=== PATIENT | female | born 1960 | race Caucasian/White ===

== ENCOUNTER → 2018-04-03 | Outpatient (CLI) | payer BC ==
[2018-04-03 11:21] LABS: Appearance,Urine Clear (Clear); Bilirubin,Urine Negative (Negative); Blood,Urine Negative (Negative); Color,Urine Light Yellow; Glucose,Urine (UA) Negative (Negative); Ketones,Urine Negative (Negative); Leukocyte Esterase,Urine Negative (Negative); Nitrite,Urine Negative (Negative); PH, Urine 6.5 (5.0-8.0); Protein,Urine Negative (Negative); Specific Gravity,Urine 1.011 (1.001-1.035); Urobilinogen,Urine <2.0 mg/dL (<2.0)
[2018-04-03 11:23] LABS: Basophils % (A) 1 %; Eosinophils # (A) 0.4 k/uL (0-0.7); Eosinophils % (A) 9 %; HCT 40.5 % (34.0-46.0); HGB 12.6 gm/dL (11.4-16.0); Lymphocytes # (A) 1.9 k/uL (1.0-4.8); Lymphocytes % (A) 47 %; MCH 27.8 pg (25.0-35.0); MCV 89.8 fL (80.0-100.0); Monocytes # (A) 0.2 k/uL (0-1.0); Monocytes % (A) 4 %; Neutrophils # (A) 1.6 k/uL (1.3-7.7); Neutrophils % (A) 39 %; Platelet Count 229 k/uL (150-450); RBC 4.52 m/uL (3.80-5.40); RDW 13.2 % (11.5-15.5); WBC 4.1 k/uL (3.8-10.6)
[2018-04-03 11:40] LABS: Albumin 4.2 g/dL (3.5-5.0); Calcium 9.9 mg/dL (8.4-10.2); Potassium 4.5 mmol/L (3.5-5.1); Total Bilirubin 0.6 mg/dL (0.2-1.3); Total Protein 7.3 g/dL (6.3-8.2)
[2018-04-03 17:50] LABS: Hemoglobin A1C 5.9 % (4.0-6.0)
== END | disposition home or self-care (01) ==
LOC: LABWHC1 10:56
PROVIDERS: ATTEND Family Medicine
DX: E78.5 Hyperlipidemia, unspecified (principal); I10 Essential (primary) hypertension; Z11.59 Encounter for screening for other viral diseases; Z79.899 Other long term (current) drug therapy
CPT/HCPCS: 36415; 80053; 80061; 81003; 82550; 83036; 84443; 85025; 86803

== ENCOUNTER → 2018-05-10 | Outpatient (CLI) | payer BC ==
--- NOTE | 2018-05-11 09:25 | CTL ---
EXAMINATION TYPE: CT Low Dose Lung DATE OF EXAM ORDERED: 05/10/2018 HISTORY: Personal history of tobacco use. Lung cancer screening CT DLP: [address]DI: 1.87 mGy Automated exposure control for dose reduction was used. SCREENING VISIT: Initial study COMPARISON: None TECHNIQUE: Low dose computed tomography scan was performed through the chest at 1 mm thick sections a nd reconstructed images in the coronal plane at [address] DIAGNOSTIC QUALITY: Satisfactory FINDINGS: LUNG NODULES: Present, detailed below: Right lung a nodule with a size of 6 x 8 mm. with Nodule Type: Solid on axial image 168. Right lung base subpleural nodule measuring 5 x 4 mm axial image 158. Left lung solid nodule measuring 6 x 3 mm axial image 142. There is an occasional nodule measuring 3 mm or smaller in size bilaterally. LUNGS: COPD: Severity: Mild Fibrosis: Severity: None Lymph nodes: None Other findings: None BILATERAL PLEURAL SPACE: Effusion: None Calcification: None Thickening: None Pneumothorax: None HEART: Heart Size: Normal Coronary calcification: None Pericardial effusion: None OTHER FINDINGS: Upper abdomen: None Bony thorax: Mild multilevel spurring Supraclavicular region: None Other: None IMPRESSION: Scattered nodules measuring up to 8 x [address] CHEST RECOMMENDATION: 6 month follow-up low-dose lung screening CT. CT LUNG RAD: Lung-Rad 3 Probably Benign
== END | disposition home or self-care (01) ==
LOC: RADCTMAIN 18:22
PROVIDERS: ATTEND Family Medicine
DX: R91.8 Other nonspecific abnormal finding of lung field (principal); Z87.891 Personal history of nicotine dependence

== ENCOUNTER → 2018-07-16 | Outpatient (CLI) | payer BC ==
--- NOTE | 2018-07-20 10:26 | MM ---
Reason for exam: screening (asymptomatic). Last mammogram was performed 2 years and 11 months ago. History: Patient is postmenopausal. Took hormonal contraceptives for 6 years. Physical Findings: A clinical breast exam by your physician is recommended on an annual basis and results should be correlated with mammographic findings. MG 3D Screening Mammo W/Cad Bilateral CC and MLO view(s) were taken. Prior study comparison: August 09, 2015, right breast MG 3d work up w/cad RT. August 02, 2015, bilateral MG screening mammo w CAD. There are scattered fibroglandular densities. Multiple bilateral circumscribed to mostly circumscribed masses compatible with a benign pattern. Some of these show slight fluctuation in size in the interval. No significant changes when compared with prior studies. ASSESSMENT: Benign, BI-RAD 2 RECOMMENDATION: Routine screening mammogram of both breasts in 1 year.
== END | disposition home or self-care (01) ==
LOC: RADMAMWWP 13:47
PROVIDERS: ATTEND Family Medicine
DX: Z12.31 Encounter for screening mammogram for malignant neoplasm of breast (principal)
CPT/HCPCS: 77063; 77067

== ENCOUNTER → 2018-07-27 | Outpatient (CLI) | payer BC | END | disposition home or self-care (01) | LOC: CPPFTMAIN 11:58 | PROVIDERS: ATTEND Family Medicine | DX: J44.9 Chronic obstructive pulmonary disease, unspecified (principal) | CPT/HCPCS: 94060; 94726; 94729 ==

== ENCOUNTER → 2019-05-12 | Outpatient (CLI) | payer BC ==
--- NOTE | 2019-05-12 19:21 | CT ---
EXAMINATION TYPE: CT chest wo con DATE OF EXAM: 05/12/2019 COMPARISON: Low-dose lung screening CT May 10, 2018 HISTORY: Lung nodules, prior abnormal CT. CT DLP: 171.9 mGycm. Automated Exposure Control for Dose Reduction was Utilized. TECHNIQUE: CT scan of the thorax is performed without IV contrast. FINDINGS: LUNGS: There is persistent anterior right mid lung nodule measuring 8 x 6 mm current study image 34 n ot significantly changed in size from prior measurements. The 4 mm subpleural nodule or nodular densi ty axial image 32 anterolateral to this is stable and benign. Of more concern is larger 9 x 6 mm subp leural nodule posteriorly right lower lobe axial image 37 not significantly changed from prior study image 188. Left lung shows scattered small nodules, referenced nodule axial image 27 measures 6 x 3 m m not significantly changed from prior. Smaller nodule is seen just anterior-inferior to the second m easures 29 unchanged from prior. There is mild to moderate biapical pleural/pericardial scarring rede monstrated. No definitive new greater than 5 mm pulmonary nodules or masses. There is central left ba silar linear scarring just above diaphragm redemonstrated. No pleural effusion or pneumothorax. MEDIASTINUM: Lack of IV contrast is noted to limit evaluation for mediastinal and especially hilar ad enopathy. There are no definitive greater than 1 cm hilar or mediastinal lymph nodes. No cardiomega ly or pericardial effusion is seen. OTHER: Mild to moderate multilevel spurring in the thoracic spine.. IMPRESSION: Stable scattered small nodules. No enlarging or new greater than 4 mm nodules identified. Follow-up CT in one year time is advised to document two-year stability to confirm benign or postinf lammatory etiology.
== END | disposition home or self-care (01) ==
LOC: RADCTMAIN 17:00
PROVIDERS: ATTEND Family Medicine
DX: R91.8 Other nonspecific abnormal finding of lung field (principal)
CPT/HCPCS: 71250

== ENCOUNTER → 2019-10-18 | Outpatient (CLI) | payer BC ==
[2019-10-18 18:47] LABS: African American GFR (CKD) 92.9 (60.0-200.0); Anion Gap 6.3 mmol/L (4.00-12.00); BUN/Creat Ratio 26.25 Ratio (12.00-20.00); Calcium 9.7 mg/dL (8.7-10.3); Carbon Dioxide 27.7 mmol/L (21.6-31.8); Chol/HDL Ratio 3.7; Non-African American GFR(CKD) 80.1 (60.0-200.0); Potassium 4.1 mmol/L (3.5-5.5)
== END ==
LOC: LABWHC1 12:39
PROVIDERS: ATTEND Family Medicine
DX: I10 Essential (primary) hypertension (principal); E78.5 Hyperlipidemia, unspecified
CPT/HCPCS: 36415; 80048; 80061

== ENCOUNTER → 2020-02-24 | Outpatient (CLI) | payer BC ==
--- NOTE | 2020-02-27 10:23 | MM ---
Reason for exam: screening (asymptomatic). Last mammogram was performed 1 year and 7 months ago. History: Patient is postmenopausal. Took hormonal contraceptives for 6 years. Physical Findings: A clinical breast exam by your physician is recommended on an annual basis and results should be correlated with mammographic findings. MG 3D Screening Mammo W/Cad Bilateral CC and MLO view(s) were taken. Prior study comparison: July 16, 2018, bilateral MG 3d screening mammo w/cad. August 09, 2015, right breast MG 3d work up w/cad RT. The breast tissue is almost entirely fat. No significant changes when compared with prior studies. ASSESSMENT: Benign, BI-RAD 2 RECOMMENDATION: Routine screening mammogram of both breasts in 1 year.
== END | disposition home or self-care (01) ==
LOC: RADMAMWWP 08:02
PROVIDERS: ATTEND Family Medicine
DX: Z12.31 Encounter for screening mammogram for malignant neoplasm of breast (principal)
CPT/HCPCS: 77063; 77067

== ENCOUNTER → 2022-05-23 | Outpatient (CLI) | payer BC ==
--- NOTE | 2022-05-24 18:41 | MR ---
EXAMINATION TYPE: MR abdomen wo/w con DATE OF EXAM: 05/23/2022 COMPARISON: CT scan abdomen 04/21/2022 HISTORY: Abnormal CT chest. Intra-abdominal and pelvic swelling, mass and lump. CONTRAST: Standard multiplanar, multisequence MRI departmental protocol images were obtained without contrast a nd with 7 mL intravenous Gadavist gadolinium contrast. Liver has normal size and contour. Bile ducts are not dilated. Gallbladder appears normal. There is n o pancreatic mass. Spleen has normal size and contour. Stomach is intact. There is no adrenal mass. Kidneys show normal size and contour. No hydronephrosis. Contrast images sh ow normal enhancement of the kidneys and the portal venous system. There is no evidence of pleural ef fusion. There is no ascites. There is oval-shaped intermediate signal lesion posterior to the spleen and appears separate from the spleen. This does not enhance and has high signal on the T2 images and could be a chronic hematoma o r seroma. The wall is thin. This could also be pseudocyst. There is no retroperitoneal adenopathy. No evidence of a bowel obstruction. IMPRESSION: Sharply marginated oval-shaped fluid signal mass posterior to the spleen could be a perisplenic hemor rhage or seroma or pseudocyst. No significant change in size compared to old CT SCAN.
== END | disposition home or self-care (01) ==
LOC: RADMRIMAIN 14:20
PROVIDERS: ATTEND Family Medicine
DX: R93.5 Abnormal findings on diagnostic imaging of other abdominal regions, including retroperitoneum (principal)
CPT/HCPCS: 74183; A9585

== ENCOUNTER → 2023-03-31 | Outpatient (CLI) | payer BC ==
[2023-03-31 16:21] LABS: BUN/Creat Ratio 25.11 Ratio (12.00-20.00); Blood Urea Nitrogen 22.6 mg/dL (9.0-27.0); Calcium 9.6 mg/dL (8.7-10.3); Carbon Dioxide 24.6 mmol/L (21.6-31.8); Chloride 108 mmol/L (96-109); Chol/HDL Ratio 2.53 Ratio; Glucose 86 mg/dL (70-110); LDL Cholesterol,Calculated 99.6 mg/dL (0.0-131.0); Potassium 4.4 mmol/L (3.5-5.5); Sodium 142 mmol/L (135-145); VLDL Calculation 8.64 mg/dL (5.00-40.00)
== END | disposition home or self-care (01) ==
LOC: LABWHC1 09:32
PROVIDERS: ATTEND Family Medicine
DX: I10 Essential (primary) hypertension (principal); E78.5 Hyperlipidemia, unspecified; E55.9 Vitamin D deficiency, unspecified
CPT/HCPCS: 36415; 80048; 80061; 82306

== ENCOUNTER → 2023-04-28 | Outpatient (CLI) | payer BC ==
--- NOTE | 2023-04-28 08:10 | CT ---
EXAMINATION TYPE: CT chest wo con CT DLP: 149.6 mGycm, Automated exposure control for dose reduction was used. DATE OF EXAM: 04/28/2023 7:38 AM COMPARISON: CT chest 04/19/2022, 05/12/2019, 05/10/2018 CLINICAL INDICATION:Female, 62 years old with history of R91.8; PHH, Follow up for lung nodules. Hx o f COPD. TECHNIQUE: Multiple axial images were obtained through the chest without IV contrast. Lack of IV or o ral contrast limits evaluation of solid and hollow organ viscera. . Coronal and sagittal reformats re viewed. FINDINGS: LUNGS/ PLEURA: No pleural effusion, pneumothorax, focal consolidation. Biapical pleural thickening. S table scattered pulmonary nodules. Examples include: Stable left upper lobe 4 mm pulmonary nodule (se jimbo 4, image 30). Stable left lower lobe pleural-based 6 mm pulmonary nodule (series 4, image 37). S table left lower lobe 5 mm pulmonary nodule along the left major fissure (series 4, image 28). Stable pleural-based posterior right lower lobe 9 mm pulmonary nodule (series 4, image 36). Stable right mi dlung 6 mm nodule (series 4, image 35). No new or enlarging pulmonary nodules. Mild COPD changes. AIRWAY: Patent and unremarkable.. HEART: Size within normal limits. No pericardial effusion. MEDIASTINUM: No gross evidence of adenopathy. VASCULATURE: No aortic aneurysm. MUSCULOSKELETAL: Mild disc degeneration changes are present throughout the thoracolumbar spine. No ac jeremiah osseous abnormality. SOFT TISSUES/LYMPH NODES: Unremarkable. LOWER NECK: No significant findings. UPPER ABDOMEN: Stable soft tissue posterior to the spleen and considered benign. IMPRESSION: 1. Stable bilateral pulmonary nodules dating back to 2019 and considered benign due to stability. No new or enlarging pulmonary nodules. 2. Stable soft tissue posterior to the spleen which is considered benign due to stability from 2019.
--- NOTE | 2023-04-28 09:14 | US ---
EXAMINATION TYPE: US abdomen limited DATE OF EXAM: 04/28/2023 COMPARISON: NONE CLINICAL INDICATION: Female, 62 years old with history of D73.4 CYST OF SPLEEN; cystc area noted post erior to spleen on MRI TECHNIQUE: Multiple sonographic images of the left upper quadrant are obtained. FINDINGS: EXAM MEASUREMENTS: Spleen: 8.5x2.3x8.9 cm Left Kidney: 10.9x4.8x4.4 cm [employer] NOTES: 1. Spleen: area of concern noted on MRI seen today as a 2.5x0.8x2.2cm anechoic area with an interna l calcification which can also be seen on prior CT 2. Left Kidney: prominent slightly complicated cystic area: 2.2x2.2x1.9cm exam slightly limited due to area of concern being posterior to ribs IMPRESSION: 1. Small perisplenic hypoechoic area with wall calcification is noted and may reflect a cyst or a chr onic seroma. 2. Bosniak type II cystic lesion left kidney.
--- NOTE | 2023-04-30 00:23 | MM ---
Reason for Exam: Screening (asymptomatic). Last screening mammogram was performed 12 month(s) ago. Patient History: Menarche at age 9. First Full-Term at age 23. Postmenopausal. Patient used Hormonal Contraceptives for 6 years. Risk Values: Pamela 5 year model risk: 2.0%. NCI Lifetime model risk: 7.9%. Prior Study Comparison: 07/16/2018 Bilateral Screening Mammogram, [facility]. 02/24/2020 Bilateral Screening Mammogram, [facility]. 04/21/2022 Bilateral MG 3D screening mammo w/cad, [facility]. Tissue Density: There are scattered fibroglandular densities. Findings: Analyzed By CAD. Chronic nodularity on both sides. There is no suspicious group of microcalcifications or new suspicious mass in either breast. Overall Assessment: Benign, BI-RAD 2 Management: Screening Mammogram of both breasts in 1 year. . Patient should continue monthly self-breast exams. A clinical breast exam by your physician is recommended on an annual basis. This exam should not preclude additional follow-up of suspicious palpable abnormalities. Note on Pamela scores and lifetime risk: 1. A Pamela score greater than 3% is considered moderate risk. If this is the case, consider specialist referral to assess eligibility for a risk reducing agent. 2. If overall lifetime risk for the development of breast cancer is 20% or higher, the patient may qualify for future screening with alternating mammogram and breast MRI. Electronically signed and approved by: Marjan Orozco M.D. Radiologist
== END | disposition home or self-care (01) ==
LOC: RADMAMWWP 06:54
PROVIDERS: ATTEND Family Medicine
DX: Z12.31 Encounter for screening mammogram for malignant neoplasm of breast (principal); D73.4 Cyst of spleen; R91.1 Solitary pulmonary nodule; N28.89 Other specified disorders of kidney and ureter; Z78.0 Asymptomatic menopausal state
CPT/HCPCS: 71250; 76705; 77063; 77067

== ENCOUNTER → 2024-06-01 | Outpatient (CLI) | payer MEDICARE ==
[2024-06-01 11:04] LABS: HCT 41.1 % (37.2-46.3); HGB 13.1 g/dL (12.0-15.0); MCH 29.3 pg (27.0-32.0); MCHC 31.9 g/dL (32.0-37.0); MCV 91.9 FL (80.0-97.0); Mean Platelet Volume 10.1 FL (9.5-12.2); NRBC Per 100 WBC 0 X 10*3/uL (0.00-0.01); Platelet Count 229 X 10*3/uL (140-440); RBC 4.47 X 10*6/uL (4.10-5.20); RDW 13.1 % (11.5-14.5)
[2024-06-01 11:31] LABS: ALT 25 U/L (8-44); AST 26 U/L (13-35); Albumin 4.5 g/dL (3.8-4.9); Albumin/Globulin Ratio 1.67 Ratio (1.60-3.17); Alkaline Phosphatase 86 U/L (41-126); Blood Urea Nitrogen 26.6 mg/dL (9.0-27.0); Carbon Dioxide 25.3 mmol/L (21.6-31.8); Chloride 105 mmol/L (96-109); Chol/HDL Ratio 3.14 Ratio; Globulin 2.7 g/dL (1.6-3.3); Glucose 96 mg/dL (70-110); LDL Cholesterol,Calculated 133.2 mg/dL (0.0-131.0); Potassium 4.7 mmol/L (3.5-5.5); Sodium 141 mmol/L (135-145); Total Bilirubin 0.5 mg/dL (0.3-1.2); Total Protein 7.2 g/dL (6.2-8.2); VLDL Calculation 14.08 mg/dL (5.00-40.00)
== END | disposition home or self-care (01) ==
LOC: LABWHC1 08:28
PROVIDERS: ATTEND Family Medicine
DX: I10 Essential (primary) hypertension (principal); E78.5 Hyperlipidemia, unspecified; N64.59 Other signs and symptoms in breast; E55.9 Vitamin D deficiency, unspecified
CPT/HCPCS: 36415; 80053; 80061; 82306; 85027

== ENCOUNTER → 2024-06-08 | Outpatient (CLI) | payer BC, MEDICARE ==
--- NOTE | 2024-06-08 09:26 | USB ---
Reason for Exam: Clinical finding. Patient History: Menarche at age 9. First Full-Term at age 23. Postmenopausal. Patient has history of breast feeding. Patient used Hormonal Contraceptives for 6 years. Risk Values: Pamela 5 year model risk: 2.0%. NCI Lifetime model risk: 7.6%. Technique: Method: Targeted. Prior Study Comparison: 02/24/2020 Bilateral Screening Mammogram, [facility]. 04/21/2022 Bilateral MG 3D screening mammo w/cad, [facility]. 04/28/2023 Bilateral MG 3D screening mammo w/cad, [facility]. Findings: The axilla of the right breast and the retroareolar of the right breast were scanned. Subcutaneous lesion in the region of the right axilla measuring 8 mm likely reflects a sebaceous cyst. Six-month follow-up is recommended. Within the imaged right breast there is no evidence for mass. Focal calcification is identified which is benign on mammography. Overall Assessment: Probably benign, BI-RAD 3 Management: Diagnostic Breast Ultrasound of the right breast in 6 months. A clinical breast exam by your physician is recommended on an annual basis and results should be correlated with mammographic findings. This exam should not preclude additional follow-up of suspicious palpable abnormalities. Results were given to the patient verbally at the time of exam. [facility], , 06/08/2024 9:22 AM. Electronically signed and approved by: Denver Hyde M.D. Radiologis
== END | disposition home or self-care (01) ==
LOC: RADUSWWP 08:14
PROVIDERS: ATTEND Family Medicine
DX: N64.4 Mastodynia

== ENCOUNTER → 2024-06-08 | Outpatient (CLI) | payer BC, MEDICARE ==
--- NOTE | 2024-06-08 08:52 | MM ---
Reason for Exam: Clinical finding. Last mammogram was performed 1 year(s) and 2 month(s) ago. Indicated Problems: Skin changes to breast of the right side for 2 Week(s). Patient History: Menarche at age 9. First Full-Term at age 23. Postmenopausal. Patient has history of breast feeding. Patient used Hormonal Contraceptives for 6 years. Risk Values: Pamela 5 year model risk: 2.0%. NCI Lifetime model risk: 7.6%. Prior Study Comparison: 08/16/2013 Bilateral Screening Mammogram, [facility]. 08/02/2015 Bilateral Screening Mammogram, [facility]. 08/09/2015 Right Diagnostic Mammogram, [facility] 07/16/2018 Bilateral Screening Mammogram, [facility]. 02/24/2020 Bilateral Screening Mammogram, [facility]. 04/21/2022 Bilateral MG 3D screening mammo w/cad, [facility]. 04/28/2023 Bilateral MG 3D screening mammo w/cad, [facility]. Tissue Density: The breasts are almost entirely fatty. Findings: Analyzed By CAD. No evidence for mass or distortion. No suspicious microcalcifications. Overall Assessment: Incomplete: need additional imaging evaluation, BI-RAD 0 Management: Diagnostic Breast Ultrasound of the right breast. . Results were given to the patient verbally at the time of exam. Patient should continue monthly self-breast exams. A clinical breast exam by your physician is recommended on an annual basis. This exam should not preclude additional follow-up of suspicious palpable abnormalities. Note on Pamela scores and lifetime risk: 1. A Pamela score greater than 3% is considered moderate risk. If this is the case, consider specialist referral to assess eligibility for a risk reducing agent. 2. If overall lifetime risk for the development of breast cancer is 20% or higher, the patient may qualify for future screening with alternating mammogram and breast MRI. [facility], , 06/08/2024 8:48 AM. Electronically signed and approved by: Denver Hyde M.D. Radiologis
== END | disposition home or self-care (01) ==
LOC: RADMAMWWP 08:00
PROVIDERS: ATTEND Family Medicine
DX: N64.59 Other signs and symptoms in breast
CPT/HCPCS: 77062; 77066

== ENCOUNTER → 2024-07-27 | Outpatient (CLI) | payer MEDICARE ==
--- NOTE | 2024-07-27 14:35 | BD ---
EXAMINATION TYPE: Axial Bone Density DATE OF EXAM: 07/27/2024 CLINICAL HISTORY: 63 years old Female. ICD-10 CODE: N951 STEVE AND FEMALE CLIMACTERIC STATE , Additio nal History: Height: 64.5 Weight: 144.7 FRAX RISK QUESTIONS: Alcohol (3 or more units per day): no Family History (Parent hip fracture): no Glucocorticoids (More than 3mos): no (Ex: prednisone, prednisolone, methylprednisolone, dexamethasone, and hydrocortisone). History of Fracture in Adulthood: no Secondary Osteoporosis: 1. Type 1 Diabetes: no 2. Hyperthyroidism: no 3. Menopause before 45: no 4. Malnutrition: no 5. Chronic liver disease: no Rheumatoid Arthritis: no Current Tobacco Use: no RISK FACTORS HISTORY OF: Hip Fracture (Right/Left): no Spine Fracture: no History of Wrist Fracture: no Surgery to Spine/Hip(right/left)/Wrist (right/left): L4 surgery When: 2007 MEDICATIONS: Thyroid Medications: no Osteoporosis Medications: no EXAM MEASUREMENTS: Bone mineral density about the R hip (g/cm2): 0.726 Bone mineral density about the L hip (g/cm2): 0.717 T Score values are as follows: -----R Neck: -1.5 -----L Neck: -1.6 -----R Total: -2.2 -----L Total: -2.3 Z Score values are as follows: -----R Neck: 0.0 -----L Neck: -0.1 -----R Total: -1.0 -----L Total: -1.1 Bone mineral density has: decreased -5.0 % since study of: 2010 FRAX%s: The graph provided illustrates a 9.3% chance for a major osteoporotic fx and a 1.1% chance fo r the hips probability for fx in 10 years time. IMPRESSION: Osteopenia (T Score between -2.5 and -1). There is slightly increased risk of fracture and the patient may be considered for treatment. Re-Screen 2-5 years. NOTE: T-SCORE=SD OF THE YOUNG ADULT MEAN. [facility], , 07/27/2024 2:33 PM
--- NOTE | 2024-08-02 14:17 | CTL ---
EXAMINATION TYPE: CT Low Dose Lung DATE OF EXAM: 07/27/2024 9:11 AM CLINICAL INDICATION: Female, 63 years old with history of Z12.2 ENCNTR SCREEN FOR MALIGNANT NEOPLASM OF RESP, FORMER SMOKER, QUIT 7 YEARS AGO. SMOKED 1PPD X30 YEARS, History of tobacco use. TECHNIQUE: Low Dose CT Lung Screening, Low dose computed tomography scan was performed through the est at 1 millimeter thick sections and reconstructed images in the coronal plane at 1 mm thick sectio ns. IV CONTRAST USED: None. SCREENING VISIT: 4 COMPARISON: 04/28/2023 CT DLP: 81 mGycm, Automated exposure control for dose reduction was used. CT CTDI: 2.2 mGy FINDINGS: CT DIAGNOSTIC QUALITY: Satisfactory LUNG NODULES: Stable scattered pulmonary nodules measuring up to 9 mm. Stability dating back to 2018. No new nodules seen. LUNGS: COPD: Severity: Mild Fibrosis: Severity:None Lymph nodes: None Other findings: None RIGHT PLEURAL SPACE: Effusion: None Calcification: None Thickening: None Pneumothorax: None LEFT PLEURAL SPACE: Effusion: None Calcification: None Thickening: None Pneumothorax: None HEART: Heart Size: Mildly enlarged Coronary calcification: Mild Pericardial effusion: None OTHER FINDINGS: Upper abdomen: No significant abnormality Bony thorax: Degenerative changes Supraclavicular region: No significant abnormalityOther: No significant abnormalityI IMPRESSION: 1. Stable scattered pulmonary nodules measuring up to 9 mm. Stability dating back to 2018. No new nod ules seen. 2. Mild emphysema. CT LUNG RAD AND CT CHEST RECOMMENDATION: Category 2 benign appearance and/or behavior S Modifier (other clinically significant findings): [facility], , 08/02/2024 2:15 PM
== END | disposition home or self-care (01) ==
LOC: RADBDWWP 07:49
PROVIDERS: ATTEND Family Medicine
DX: Z12.2 Encounter for screening for malignant neoplasm of respiratory organs (principal); Z87.891 Personal history of nicotine dependence; N95.1 Menopausal and female climacteric states; Z13.820 Encounter for screening for osteoporosis; M85.80 Other specified disorders of bone density and structure, unspecified site; J43.9 Emphysema, unspecified; M81.8 Other osteoporosis without current pathological fracture
CPT/HCPCS: 71271; 77080

== ENCOUNTER → 2024-12-01 | Outpatient (CLI) | payer MEDICARE ==
--- NOTE | 2024-12-01 11:20 | P.PN ---
Subjective Progress Note Date: 12/01/24 12-01-24 Reason for Consult: abnormal right breast mammogram Requesting physician: Lorene Rodríguez History of present illness: Karin is a 63 year old female seen in consultation for DR. Rodríguez regarding a mammographic abnormality in the right breast. She had a bilateral mammogram on 06-08-24 which resulted in a right breast ultrasound the same day. This showed a lesion in the right axilla consistent with a sebaceous cyt. She had no mass noted. BIRAD 3, repeat right breast ultrasound in 6 months. These were personally reviewed and interpreted. She states she had a red spot on her right breast. It was intermittent and most prevalent after a hot shower, this was several months ago in May 2024. This has resolved at this time. It was not painful. She had no nipple inversion. She has not had any surgery on her breast. She is not complaining of any new lumps masses or nodules of concern in either breast. She does have what is probably a sebaceous cyst under her right arm. She is not complaining of any nipple discharge. She has not had any recent trauma or infection in her breast. Two root canals done last week, one is not completed Caffeine: 2 glasses pop/day nicotine: none chocolate: monthly BCP: used for 10 years homrone: none Family History: mother cancer not know where it started maternal grandfather: colon cancer Hormonal History: menarche: 9 , breast fed: no, age at first : 23 menopause: 47 Surgical History: laminectomy/disctom [place] Medical History: HTN high cholesterol vitamin D supplements Social History: nicotine: none, stopped 12 years ago did smoke 12 1/2 years alcohol: none drugs: none Review of Systems - Constitutional Denies fever, Denies weight loss - EENT Eyes: bilateral blurred vision Ears: deny: decreased hearing, tinnitus Ears, nose, mouth and throat: Denies dysphagia - Breasts bilateral: as per HPI - Cardiovascular Cardiovascular Comment(s): COPD Reports shortness of breath, Denies chest pain - Respiratory Reports cough - Gastrointestinal Gastrointestinal Comment(s): PUD in remote past Reports as per HPI - Genitourinary Genitourinary: Denies dysuria, Denies hematuria Menstruation: Reports postmenopausal - Musculoskeletal Reports as per HPI - Integumentary Reports as per HPI - Neurological Denies headaches, Denies syncope - Psychiatric Reports anxiety, Reports depression - Endocrine Reports as per HPI, Reports fatigue, Reports weight change - Hematologic/Lymphatic Denies easy bleeding, Denies easy bruising - Allergic/Immunologic Reports as per HPI, Reports seasonal allergies Past Medical History Past Medical History: No Reported History History of Any Multi-Drug Resistant Organisms: None Reported Past Surgical History: Back Surgery Additional Past Surgical History / Comment(s): foot Past Psychological History: No Psychological Hx Reported Smoking Status: Former smoker Past Alcohol Use History: None Reported Past Drug Use History: None Reported Medications and Allergies Home Medications Medication Instructions Recorded Confirmed Type Omeprazole [PriLOSEC] 20 mg PO AC-BRKFST 01/07/14 10/20/24 History Simvastatin [Zocor] 40 mg PO HS 01/07/14 10/20/24 History lisinopriL [Zestril] 20 mg PO DAILY 01/07/14 10/20/24 History Allergies Allergy/AdvReac Type Severity Reaction Status Date / Time Sulfa (Sulfonamide Allergy Rash/Hives Verified 10/20/24 14:57 Antibiotics) Objective - Constitutional General appearance: Present: cooperative - EENT Eyes: Present: EOMI ENT: Present: hearing grossly normal - Neck Neck: Present: normal ROM - Respiratory Respiratory: bilateral: CTA - Cardiovascular Rhythm: regular Heart sounds: normal: S1, S2 - Integumentary Integumentary: Present: normal turgor - Musculoskeletal Musculoskeletal: Present: gait normal - Psychiatric Psychiatric: Present: A&O x's 3, appropriate affect, intact judgment & insight - Additional findings Additional findings: Breast Exam: bra: 36D Inspection: Bilateral grade 2 ptosis Probable sebaceous cyst right axilla Palpation: Right breast: Multi positional exam fibrocystic changes no discrete dominant masses or nodules of concern Right axilla: No adenopathy of concern, approximately 8 mm cyst probable sebaceous cyst which is palpable in the anterior axilla Left breast: Multi positional exam fibrocystic changes no discrete dominant masses or nodules of concern, particular attention to the periareolar area and area of prior skin change does not reveal anything of concern on today's exam Left axilla: No adenopathy of concern skin tag under the left breast Assessment and Plan Assessment: Impression: Fibrocystic breast changes probable sebaceous cyst in the right axilla Plan: Resection of sebaceous cyst right axilla Repeat bilateral mammogram in May 2025 Consent: I have discussed the risks, benefits and alternative therapies for the above-mentioned procedure and for both sedation/analgesia as well as necessary b lood product administration, if indicated, as they pertain to this patient. The patient has indicated understanding and acceptance of the risks and procedures discussed. pre op education given functional arm assessment: passed non smoker CC: Dr. Rodríguez
[2024-12-01 11:29] VITALS: BP 122/84; PULSE 94; RESP 17; TEMP 98.5
== END ==
LOC: WWCWWP 10:52
PROVIDERS: ATTEND Surgery
DX: N60.11 Diffuse cystic mastopathy of right breast (principal); F17.210 Nicotine dependence, cigarettes, uncomplicated; Z88.2 Allergy status to sulfonamides

== ENCOUNTER 2024-12-13 07:04 | Day surgery (SDC) | payer MEDICARE ==
[2024-12-09 11:34] VITALS: BMI 24.8
[~2024-12-13 07:04] MED LIST: HYDROmorphone 0.5 MG/0.5 ML SYRINGE IVP PRN; LIDOCAINE 1% (10MG/ML) FOR IV START INTRADERMA PRN; MIDAZOLAM 2 MG/2 ML VIAL IV PRN; Pre Op ABX Message 1 EACH MISC MISCELLANE ONE; fentaNYL (PF) 50 MCG/ML 2 ML AMP IVP PRN
[2024-12-13] MEDS: IV FLUID CONTINUATION 1,000 ML IV ONE (07:40)
[2024-12-13] MEDS: LACTATED RINGERS 1,000 ML IV SCH (07:40)
[2024-12-13] MEDS: ACETAMINOPHEN TAB 500 MG TAB PO PRN (07:45)
[2024-12-13] MEDS: ONDANSETRON 4 MG/2 ML VIAL IVP ONE (07:45)
[2024-12-13] MEDS: HEPARIN SODIUM,PORCINE 5,000 UNIT/ML 1 ML VIAL SQ PRN (07:47)
[2024-12-13] MEDS: DEXAMETHASONE SOD PHOSPHATE 4 MG/ML 1 ML VIAL IV ONE (07:47)
[2024-12-13] MEDS ORDERED: diphenhydrAMINE 50 MG/ML 1 ML VIAL ONE (08:37)
[2024-12-13] MEDS ORDERED: GLYCOPYRROLATE 0.2 MG/ML 2 ML VIAL ONE (08:37)
[2024-12-13] MEDS ORDERED: PROPOFOL 10 MG/ML 20 ML VIAL IV ONE (08:37)
[2024-12-13] MEDS ORDERED: fentaNYL (PF) 50 MCG/ML 2 ML AMP ONE (08:37)
[2024-12-13] MEDS ORDERED: LIDOCAINE 1% INJ 10MG/ML (20 ML MDV) ONE (08:37)
[2024-12-13] MEDS: SODIUM CHLORIDE 0.9% 100 ML with ceFAZolin 2,000 MG IV ONE (08:57)
--- NOTE | 2024-12-13 09:10 | P.BCAON ---
Date of Procedure: 12/13/24 Preoperative Diagnosis: Soft tissue mass/sebaceous cyst right axilla Postoperative Diagnosis: Same Procedure(s) Performed: Excision soft tissue mass right axilla Anesthesia: PRIYANKA Surgeon: Loly Genao Estimated Blood Loss (ml): 1 IV fluids (ml): 300 Pathology: other Indications for Procedure: Palpable mass right axilla/probable sebaceous cyst Operative Findings: She was brought to the operative suite. Following induction of anesthesia the right axilla was prepped and draped in a sterile fashion. An excisional biopsy of the area of concern in the right breast was performed. Skin was removed with the specimen. The specimen was approximately 1 cm x 8 mm. The dissection posteriorly was into the fatty tissue. The wound was well irrigated. The electrocautery was used to maintain hemostasis. After assuring that hemostasis was attained the deep tissues were closed using 3-0 Vicryl suture. This was followed by closure of the skin with a 4-0 Monocryl. Surgical glue was applied. The patient tolerated the procedure in stable condition. All instrument and sponge counts were correct at the end of the case. Description of Procedure: Soft tissue mass right axilla
[2024-12-13 09:24] VITALS: TEMP 97.8
[2024-12-13 10:11] VITALS: RESP 14
[2024-12-13 10:24] VITALS: BP 128/83; PULSE 82
== END 2024-12-13 10:49 | disposition home or self-care (01) ==
LOC: OR 07:04
PROVIDERS: ATTEND Surgery
DX: L72.0 Epidermal cyst (principal); I10 Essential (primary) hypertension; E78.5 Hyperlipidemia, unspecified; J44.89 Other specified chronic obstructive pulmonary disease; K21.9 Gastro-esophageal reflux disease without esophagitis; Z79.899 Other long term (current) drug therapy; Z88.6 Allergy status to analgesic agent; Z88.1 Allergy status to other antibiotic agents; Z88.2 Allergy status to sulfonamides
CPT/HCPCS: 21555; J1200; J1644; J1100; J2405; J0690; J2003; J3010; J2704; J1596; 88304

== ENCOUNTER → 2024-12-22 | Outpatient (CLI) | payer MEDICARE ==
[2024-12-22 13:10] VITALS: BP 132/79; PULSE 95; RESP 17; TEMP 98.2
--- NOTE | 2024-12-22 13:14 | P.BCPO ---
Progress Note - Text Progress Note Date: 12/22/24 Patient status post resection of epidermal inclusion cyst on 12-13-24. Bilateral mammogram on 06-08-24 which led to an ultrasound and findings of probable sebacous cyst. She is complaining of some tenderness on the side of her neck and her shoulder. This is worse with movement. She noted this several days after the procedure. Examination: lungs: clear heart: RRR incision: clean and dry Right arm abduction test passed without difficulty Impression: Epidermal inclusion cyst right axilla Plan: Bilateral mammogram in June 24 with appointment at that time We have discussed physical therapy secondary to her discomfort in her right neck and shoulder and at this time she has declined she will call us if it gets worse Post Op Education - Post Op Education Post Op Education Provided Date: 12/22/24 Path Report - Was patient given path report? Path Report Date Given: 12/22/24
== END ==
LOC: WWCWWP 12:37
PROVIDERS: ATTEND Surgery
DX: Z12.31 Encounter for screening mammogram for malignant neoplasm of breast (principal); L72.0 Epidermal cyst; F17.200 Nicotine dependence, unspecified, uncomplicated; Z88.2 Allergy status to sulfonamides; Z88.0 Allergy status to penicillin